=== PATIENT | female | born 1965 | race Caucasian/White ===

== ENCOUNTER 2016-09-07 12:48 | Observation (INO) | payer MEDICAID ==
[~2016-09-07] VITALS: Ht 152.4 cm; Wt 91.6 kg
[2016-09-07] MEDS ORDERED: ASPIRIN 81 MG CHEW TAB ONE (13:09)
[2016-09-07] MEDS ORDERED: ONDANSETRON 4 MG VIAL ONE (14:39)
[2016-09-07] MEDS ORDERED: NITROGLYCERIN 2% OINT 1 INCH PKT TOPICAL ONE (14:39)
[2016-09-07] MEDS ORDERED: MORPHINE 2 MG/ML SYR ONE (14:40)
[2016-09-07] MEDS ORDERED: ONDANSETRON 4 MG VIAL IV PRN (16:15)
[2016-09-07] MEDS ORDERED: ALU/MAG/SIM 30 ML UDC PO PRN (16:15)
[2016-09-07] MEDS ORDERED: LORAZEPAM 0.5 MG TAB PO PRN (16:15)
[2016-09-07] MEDS ORDERED: NITROGLYCERIN SL 0.4 MG TAB SL PRN (16:15)
[2016-09-07] MEDS ORDERED: ACETAMINOPHEN 325 MG TAB PO PRN (16:15)
[2016-09-07] MEDS ORDERED: SALINE FLUSH 10 ML FLUSH PRN (16:15)
[2016-09-07] MEDS ORDERED: DOCUSATE SOD 100 MG CAP PO PRN (16:15)
[2016-09-07] MEDS ORDERED: MORPHINE 2 MG/ML SYR IV PRN (16:15)
[2016-09-07 17:30] VITALS: RESP 18
[2016-09-07 17:52] VITALS: BP_SYST 118; RESP 16; TEMP 97.6
[2016-09-07 17:53] VITALS: Ht 152.4 cm; Wt 91.6 kg
[2016-09-07] MEDS ORDERED: METHOCARBAMOL 500 MG TAB PO PRN (18:40)
[2016-09-07] MEDS ORDERED: BUSPIRONE HCL 10 MG TAB PO PRN (18:40)
[2016-09-07] MEDS ORDERED: LOPERAMIDE 2 MG CAPSULE PO PRN (18:40)
[2016-09-07] MEDS ORDERED: NITROGLYCERIN SL 0.4 MG TAB SL SCH (18:40)
[2016-09-07] MEDS ORDERED: Hydrocodone/APAP 10/325 MG TAB PO PRN (18:40)
[2016-09-07] MEDS ORDERED: FAMOTIDINE 20 MG INJ IV ONE (18:40)
[2016-09-07 19:00] VITALS: BP_SYST 103; RESP 16; TEMP 98.3
[2016-09-07] MEDS: ACETAMIN/BUTALB/CAFF PO PRN (19:55)
[2016-09-07] MEDS: SALINE FLUSH 10 ML FLUSH SCH (20:49)
[2016-09-07] MEDS: POLY B EAR EACH SCH (20:49)
[2016-09-07] MEDS: [UNRECOGNIZED DRUG - OTHER] EAR EACH SCH (20:49)
[2016-09-07] MEDS: SUCRALFATE 1 GM TAB PO SCH (20:49)
[2016-09-07] MEDS: NEO EAR EACH SCH (20:49)
[2016-09-07] MEDS: GABAPENTIN 600 MG TAB PO SCH (20:49)
[2016-09-07 23:40] VITALS: BP_SYST 110; RESP 16; TEMP 98.1
[2016-09-08] MEDS ORDERED: PANTOPRAZOLE 40 MG TAB PO SCH (00:35)
[2016-09-08 03:36] VITALS: BP_SYST 128; RESP 16; TEMP 97.9
[2016-09-08] MEDS ORDERED: SODIUM CHLORIDE 0.9% FLUSH BAG 500 ML IV SCH (06:00)
[2016-09-08] MEDS: PANTOPRAZOLE 40 MG TAB PO SCH ×2 (06:13→16:00)
[2016-09-08] MEDS: SUCRALFATE 1 GM TAB PO SCH ×3 (06:13→16:00)
[2016-09-08] MEDS ORDERED: LEVOTHYROXINE 0.075 MG TAB PO SCH (07:00)
[2016-09-08] MEDS ORDERED: ASPIRIN 81 MG CHEW TAB PO SCH ×2 (08:00→09:00)
[2016-09-08] MEDS: SALINE FLUSH 10 ML FLUSH SCH (08:00)
[2016-09-08] MEDS: GABAPENTIN 600 MG TAB PO SCH ×2 (08:01→16:00)
[2016-09-08] MEDS: POLY B EAR EACH SCH ×2 (08:02→16:00)
[2016-09-08] MEDS: [UNRECOGNIZED DRUG - OTHER] EAR EACH SCH ×2 (08:02→16:00)
[2016-09-08] MEDS: NEO EAR EACH SCH ×2 (08:02→16:00)
[2016-09-08 08:06] VITALS: BP_SYST 122; RESP 18; TEMP 97.3
[2016-09-08] MEDS ORDERED: PRAVASTATIN 40 MG TAB PO SCH (09:00)
[2016-09-08] MEDS ORDERED: LISINOPRIL/HCTZ 20/12.5 TAB PO SCH (09:00)
[2016-09-08] MEDS ORDERED: ENOXAPARIN 40 MG/0.4 ML SYR SUBQ SCH (09:00)
[2016-09-08] MEDS: ACETAMIN/BUTALB/CAFF PO PRN (11:29)
[2016-09-08 12:00] VITALS: BP_SYST 105; RESP 14; TEMP 97.7
[2016-09-08 15:45] VITALS: BP_SYST 110; RESP 16; TEMP 98.1
[2016-09-08 15:54] VITALS: BP_SYST 110; RESP 16; TEMP 98.1
[2016-09-08 15:59] VITALS: BP_SYST 110; RESP 16; TEMP 98.1
== END 2016-09-08 15:24 | disposition home or self-care (01) ==
LOC: ENRESERVTM → ENRESERVDT → ER 12:48 → ENPENDDIS 16:11 → EMR 16:11 → PCU 16:56
PROVIDERS: ADMIT Internal Medicine; ATTEND Internal Medicine
DX: R07.2 Precordial pain (principal); R07.89 Other chest pain; R10.9 Unspecified abdominal pain; I20.0 Unstable angina; I10 Essential (primary) hypertension; E66.9 Obesity, unspecified; M19.90 Unspecified osteoarthritis, unspecified site; Z87.891 Personal history of nicotine dependence; Z79.82 Long term (current) use of aspirin; Z79.899 Other long term (current) drug therapy; Z88.2 Allergy status to sulfonamides; I25.2 Old myocardial infarction; E03.9 Hypothyroidism, unspecified; Z86.79 Personal history of other diseases of the circulatory system; Z86.39 Personal history of other endocrine, nutritional and metabolic disease
CPT/HCPCS: 36415; 71010; 80053; 80061; 82550; 83605; 83690; 83735; 84484; 85025; 85610; 85730; 93005; 93306; 94799; 96374; 96375; 99217; 99220

== ENCOUNTER 2016-09-09 12:05 | Inpatient (IN) | payer MEDICAID ==
[~2016-09-09] VITALS: Ht 152.4 cm; Wt 90.4 kg
[2016-09-09] MEDS ORDERED: ASPIRIN 81 MG CHEW TAB ONE (12:21)
[2016-09-09] MEDS ORDERED: OPTIRAY 350 100 ML VIAL HMH IV ONE (13:57)
[2016-09-09] MEDS ORDERED: BISACODYL 10 MG SUPP RECTAL PRN (14:00)
[2016-09-09] MEDS ORDERED: BISACODYL EC 5 MG TAB PO PRN (14:00)
[2016-09-09] MEDS ORDERED: ALU/MAG/SIM 30 ML UDC PO PRN (14:00)
[2016-09-09] MEDS ORDERED: SODIUM CHLORIDE 0.9% 1,000 ML IV SCH (14:00)
[2016-09-09] MEDS ORDERED: SODIUM CHLORIDE 0.9% 500 ML IV ONE (14:00)
[2016-09-09] MEDS ORDERED: MAG HYDROX 30 ML UDC PO PRN (14:00)
[2016-09-09] MEDS ORDERED: MORPHINE 4 MG/ML SYR IV PRN (14:00)
[2016-09-09] MEDS ORDERED: SALINE FLUSH 10 ML FLUSH PRN (14:00)
[2016-09-09] MEDS ORDERED: PANTOPRAZOLE 40 MG VIAL IV SCH (14:00)
[2016-09-09 15:02] VITALS: BMI 38.9
[2016-09-09] MEDS ORDERED: MAALOX 30 ML, LIDOCAINE 2% VISC 10 ML PO ONE ×2 (15:25)
[2016-09-09] MEDS ORDERED: BUSPIRONE HCL 10 MG TAB PO PRN (15:35)
[2016-09-09] MEDS ORDERED: LOPERAMIDE 2 MG CAPSULE PO PRN (15:35)
[2016-09-09] MEDS ORDERED: METHOCARBAMOL 500 MG TAB PO PRN (15:35)
[2016-09-09] MEDS ORDERED: NITROGLYCERIN SL 0.4 MG TAB SL SCH (15:35)
[2016-09-09 15:37] VITALS: BP_SYST 134; RESP 18; TEMP 98.1
[2016-09-09 15:38] VITALS: Ht 152.4 cm; Wt 90.4 kg
[2016-09-09] MEDS: SUCRALFATE 1GM/10ML SUSP PO SCH ×2 (16:00→22:00)
[2016-09-09] MEDS ORDERED: PANTOPRAZOLE 20 MG TAB PO SCH (16:00)
[2016-09-09] MEDS ORDERED: SUCRALFATE 1 GM TAB PO SCH (16:00)
[2016-09-09] MEDS ORDERED: PANTOPRAZOLE 80 MG in SODIUM CHLORIDE 0.9% 100 ML IV ONE (17:35)
[2016-09-09] MEDS: MORPHINE 2 MG/ML SYR IV PRN (18:38)
[2016-09-09] MEDS: SODIUM CHLORIDE 0.9% 1,000 ML IV SCH ×2 (18:38→23:48)
[2016-09-09] MEDS: [UNRECOGNIZED DRUG - OTHER] EAR EACH SCH ×2 (18:54→21:15)
[2016-09-09] MEDS: POLY B EAR EACH SCH ×2 (18:54→21:15)
[2016-09-09] MEDS: NEO EAR EACH SCH ×2 (18:54→21:15)
[2016-09-09] MEDS: GABAPENTIN 600 MG TAB PO SCH ×2 (18:55→21:18)
[2016-09-09 20:22] VITALS: BP_SYST 106; RESP 18; TEMP 97.6
[2016-09-09 20:47] VITALS: RESP 18
[2016-09-09] MEDS ORDERED: MISSING DOSE XX ONE (21:00)
[2016-09-09] MEDS: SALINE FLUSH 10 ML FLUSH SCH (21:15)
[2016-09-09] MEDS: PANTOPRAZOLE 80 MG in SODIUM CHLORIDE 0.9% 250 ML IV SCH (21:15)
[2016-09-09] MEDS: ALPRAZOLAM 0.25 MG TAB PO PRN (21:18)
[2016-09-09] MEDS: PRAVASTATIN 40 MG TAB PO SCH (21:18)
[2016-09-09] MEDS: Hydrocodone/APAP 10/325 MG TAB PO PRN (21:20)
[2016-09-09] MEDS: METOPROLOL TART 25 MG TAB PO SCH (21:22)
[2016-09-09] MEDS ORDERED: BISACODYL EC 5 MG TAB PO ONE (21:30)
[2016-09-09 23:33] VITALS: BP_SYST 106; RESP 18; TEMP 97.5
[2016-09-10 03:52] VITALS: BP_SYST 97; RESP 20; TEMP 98
[2016-09-10] MEDS: Hydrocodone/APAP 10/325 MG TAB PO PRN ×2 (03:58→16:39)
[2016-09-10] MEDS: PANTOPRAZOLE 80 MG in SODIUM CHLORIDE 0.9% 250 ML IV SCH ×2 (04:01→13:35)
[2016-09-10] MEDS: SODIUM CHLORIDE 0.9% FLUSH BAG 500 ML IV SCH (05:31)
[2016-09-10] MEDS: LEVOTHYROXINE 0.075 MG TAB PO SCH (07:00)
[2016-09-10] MEDS: SUCRALFATE 1GM/10ML SUSP PO SCH ×4 (07:00→22:18)
[2016-09-10 07:42] VITALS: BP_SYST 104; RESP 20; TEMP 97.3
[2016-09-10] MEDS: ONDANSETRON 4 MG VIAL IV PRN ×2 (07:54→16:38)
[2016-09-10] MEDS: SALINE FLUSH 10 ML FLUSH SCH ×3 (08:00→22:14)
[2016-09-10] MEDS: [UNRECOGNIZED DRUG - OTHER] EAR EACH SCH ×4 (09:00→21:00)
[2016-09-10] MEDS: NEO EAR EACH SCH ×4 (09:00→21:00)
[2016-09-10] MEDS: POLY B EAR EACH SCH ×4 (09:00→21:00)
[2016-09-10] MEDS: GABAPENTIN 600 MG TAB PO SCH ×3 (09:00→22:19)
[2016-09-10] MEDS ORDERED: PROPOFOL 50ML PER ML IV ONE (10:04)
[2016-09-10] MEDS ORDERED: LIDOCAINE 2% SYR 5 ML IV ONE (10:04)
[2016-09-10] MEDS ORDERED: LEXISCAN 0.4 MG/5 ML SYRINGE IV ONE (10:53)
[2016-09-10] MEDS: SODIUM CHLORIDE 0.9% 1,000 ML IV SCH (13:36)
[2016-09-10] MEDS: ASPIRIN 81 MG CHEW TAB PO SCH (13:36)
[2016-09-10] MEDS: METOPROLOL TART 25 MG TAB PO SCH ×2 (13:37→22:19)
[2016-09-10] MEDS: LISINOPRIL/HCTZ 20/12.5 TAB PO SCH (13:37)
[2016-09-10] MEDS ORDERED: SALINE FLUSH 10 ML FLUSH PRN (15:45)
[2016-09-10] MEDS ORDERED: LORAZEPAM 0.5 MG TAB PO PRN (15:45)
[2016-09-10 15:48] VITALS: BP_SYST 117; RESP 20; TEMP 97.4
[2016-09-10] MEDS: PANTOPRAZOLE 40 MG VIAL IV SCH (20:00)
[2016-09-10 20:01] VITALS: BP_SYST 103; RESP 18; TEMP 97.9
[2016-09-10] MEDS ORDERED: TEMAZEPAM 15 MG CAP PO PRN (21:00)
[2016-09-10] MEDS: PRAVASTATIN 40 MG TAB PO SCH (22:20)
[2016-09-11] VITALS (16 sets, daily range): BP systolic 93–147; RESP 18; TEMP 97.3–98.3
[2016-09-11] MEDS: SODIUM CHLORIDE 0.9% 1,000 ML IV SCH ×3 (00:38→21:08)
[2016-09-11] MEDS: SODIUM CHLORIDE 0.9% FLUSH BAG 500 ML IV SCH ×2 (06:00)
[2016-09-11] MEDS ORDERED: DIAZEPAM 5 MG TAB PO ONE (06:00)
[2016-09-11] MEDS: LEVOTHYROXINE 0.075 MG TAB PO SCH (06:08)
[2016-09-11] MEDS: SUCRALFATE 1GM/10ML SUSP PO SCH ×4 (06:08→21:28)
[2016-09-11] MEDS: MORPHINE 2 MG/ML SYR IV PRN (06:14)
[2016-09-11] MEDS: SALINE FLUSH 10 ML FLUSH SCH ×4 (08:00→20:00)
[2016-09-11] MEDS: POLY B EAR EACH SCH ×3 (08:22→21:11)
[2016-09-11] MEDS: NEO EAR EACH SCH ×3 (08:22→21:11)
[2016-09-11] MEDS: ASPIRIN 81 MG CHEW TAB PO SCH (08:22)
[2016-09-11] MEDS: LISINOPRIL/HCTZ 20/12.5 TAB PO SCH (08:22)
[2016-09-11] MEDS: [UNRECOGNIZED DRUG - OTHER] EAR EACH SCH ×3 (08:22→21:11)
[2016-09-11] MEDS: METOPROLOL TART 25 MG TAB PO SCH ×2 (08:25→21:27)
[2016-09-11] MEDS: GABAPENTIN 600 MG TAB PO SCH ×3 (08:26→21:09)
[2016-09-11] MEDS: PANTOPRAZOLE 40 MG VIAL IV SCH ×2 (08:26→21:09)
[2016-09-11] MEDS ORDERED: DIAZEPAM 5 MG TAB ONE (12:39)
[2016-09-11] MEDS: Hydrocodone/APAP 10/325 MG TAB PO PRN ×2 (16:35→20:05)
[2016-09-11] MEDS ORDERED: MIDAZOLAM 2 MG/2 ML INJ ONE (18:59)
[2016-09-11] MEDS ORDERED: LIDOCAINE 2% 20 ML ONE (19:05)
[2016-09-11] MEDS: PRAVASTATIN 40 MG TAB PO SCH (21:10)
[2016-09-12] VITALS (10 sets, daily range): BP systolic 100–132; RESP 13–18; TEMP 97.4–98.3
[2016-09-12] MEDS: ALPRAZOLAM 0.25 MG TAB PO PRN (00:15)
[2016-09-12] MEDS: SODIUM CHLORIDE 0.9% FLUSH BAG 500 ML IV SCH (06:10)
[2016-09-12] MEDS: LEVOTHYROXINE 0.075 MG TAB PO SCH (07:00)
[2016-09-12] MEDS: SUCRALFATE 1GM/10ML SUSP PO SCH ×3 (07:00→15:55)
[2016-09-12] MEDS: SALINE FLUSH 10 ML FLUSH SCH ×2 (08:00→13:04)
[2016-09-12] MEDS: PANTOPRAZOLE 40 MG VIAL IV SCH (08:00)
[2016-09-12] MEDS: [UNRECOGNIZED DRUG - OTHER] EAR EACH SCH ×2 (09:00→15:55)
[2016-09-12] MEDS: NEO EAR EACH SCH ×2 (09:00→15:55)
[2016-09-12] MEDS: POLY B EAR EACH SCH ×2 (09:00→15:55)
[2016-09-12] MEDS: SODIUM CHLORIDE 0.9% 1,000 ML IV SCH (09:15)
[2016-09-12] MEDS: LISINOPRIL/HCTZ 20/12.5 TAB PO SCH (13:04)
[2016-09-12] MEDS: GABAPENTIN 600 MG TAB PO SCH ×2 (13:04→16:33)
[2016-09-12] MEDS: METOPROLOL TART 25 MG TAB PO SCH (13:05)
[2016-09-12] MEDS: ASPIRIN 81 MG CHEW TAB PO SCH (13:06)
[2016-09-12] MEDS: Hydrocodone/APAP 10/325 MG TAB PO PRN (13:15)
[2016-09-12] MEDS ORDERED: PANTOPRAZOLE 40 MG TAB PO SCH (16:00)
[2016-09-13] MEDS ORDERED: PANTOPRAZOLE 40 MG TAB PO SCH (16:00)
== END 2016-09-12 18:56 | disposition home or self-care (01) | DRG 392 ==
LOC: ENRESERVDT → ENRESERVTM → ER 12:05 → EMR 13:56 → PCU2 15:02 → MC2 09-10 16:48 → ENPENDDIS 09-10 16:49 → OBSVTOIN 09-10 16:49 → PCU2 09-10 16:53
PROVIDERS: ADMIT Family Medicine; ATTEND Family Medicine
PROC: 4A023N7 Measurement of Cardiac Sampling and Pressure, Left Heart, Percutaneous Approach (ICD-10-PCS; 2016-09-11)
PROC: B2111ZZ Fluoroscopy of Multiple Coronary Arteries using Low Osmolar Contrast (ICD-10-PCS; 2016-09-11)
PROC: B2151ZZ Fluoroscopy of Left Heart using Low Osmolar Contrast (ICD-10-PCS; 2016-09-11)
PROC: 0DB68ZX Excision of Stomach, Via Natural or Artificial Opening Endoscopic, Diagnostic (ICD-10-PCS; principal; 2016-09-12 12:15)
DX: K58.9 Irritable bowel syndrome, unspecified (principal); E66.01 Morbid (severe) obesity due to excess calories; I10 Essential (primary) hypertension; E78.5 Hyperlipidemia, unspecified; I25.10 Atherosclerotic heart disease of native coronary artery without angina pectoris; E03.9 Hypothyroidism, unspecified; F41.9 Anxiety disorder, unspecified; F32.9 Major depressive disorder, single episode, unspecified; J44.9 Chronic obstructive pulmonary disease, unspecified; Z68.38 Body mass index [BMI] 38.0-38.9, adult; K21.9 Gastro-esophageal reflux disease without esophagitis; K44.9 Diaphragmatic hernia without obstruction or gangrene; Z79.82 Long term (current) use of aspirin
CPT/HCPCS: 71010; 74020; 74174; 78452; 80048; 80053; 81003; 82550; 82553; 83605; 83690; 83735; 84145; 84484; 85014; 85018; 85025; 85610; 85730; 87040; 87088; 87804; 88305; 93005; 93017; 93458; 99220; 99226; 99233; 99239